=== PATIENT | male | born 1990 | race Caucasian/White ===

== ENCOUNTER 2020-12-03 13:28 | Emergency (ER) | payer BC ==
[~2020-12-03] VITALS: Ht 193 cm; Wt 102.3 kg
[2020-12-03 14:44] LABS: COLLECTION METHOD CLEAN CATCH
[2020-12-03 15:00] LABS: MUCOUS Present /lpf; PH 5 (5-8); SQUAMOUS EPITHELIAL 0-2 /hpf; URINE APPEARANCE Clear; URINE BACTERIA None Seen /hpf; URINE BILIRUBIN Negative (NEGATIVE); URINE BLOOD Negative (NEGATIVE); URINE COLOR Yellow; URINE GLUCOSE Negative (NEGATIVE); URINE KETONE Negative (NEGATIVE); URINE LEUKOCYTE ESTERASE Negative (NEGATIVE); URINE NITRATE Negative (NEGATIVE); URINE PROTEIN(semi-quant) Negative (NEGATIVE); URINE RBC 0-2 /hpf; URINE UROBILINOGEN Negative (NEGATIVE)
[2020-12-03] MEDS ORDERED: DOXYCYCLINE 10100 MG PO (15:20)
[2020-12-03 15:31] VITALS: BP 144/87; PULSE 87
== END 2020-12-03 15:30 | disposition home or self-care (01) ==
LOC: COL.ER 13:28
PROVIDERS: Family Medicine
DX: N45.1 Epididymitis (principal)